=== PATIENT | female | born 1965 | race Caucasian/White ===

== ENCOUNTER 2016-12-22 20:44 | Emergency (ER) | payer MEDICAID ==
[~2016-12-22] VITALS: Ht 154.9 cm; Wt 80.6 kg
[2016-12-22 20:44] VITALS: BP 149/94
[2016-12-22] MEDS ORDERED: OXYcodone/APAP 5/325MG TABLET ONE (22:53)
[2016-12-22] MEDS ORDERED: OXYcodone/APAP 5/325MG TABLET PO ONE (23:00)
== END 2016-12-22 23:45 | disposition home or self-care (01) ==
LOC: ED 23:00
DX: M54.5 Low back pain (principal); G89.29 Other chronic pain; M25.512 Pain in left shoulder; J45.909 Unspecified asthma, uncomplicated; F17.210 Nicotine dependence, cigarettes, uncomplicated
CPT/HCPCS: 72110; 99284

== ENCOUNTER 2017-02-04 12:37 | Emergency (ER) | payer MEDICAID ==
[~2017-02-04] VITALS: Ht 154.9 cm; Wt 73.0 kg
[2017-02-04 12:39] VITALS: BP 104/74
[2017-02-04] MEDS ORDERED: ASPIRIN 81 MG TABLET CHEW PO ONE (13:30)
[2017-02-04] MEDS ORDERED: ASPIRIN 81 MG TABLET CHEW ONE (13:38)
[2017-02-04 14:01] LABS: BLOOD UREA NITROGEN 8 mg/dL (7-18)
[2017-02-04 14:06] LABS: ASPARTATE AMINO TRANSFERASE 14 U/L (15-37)
[2017-02-04 14:07] LABS: IS PT STATUS REG ER OR PRE ER? YES
== END 2017-02-04 14:51 | disposition home or self-care (01) ==
LOC: ED 13:44
DX: R00.2 Palpitations (principal); R07.89 Other chest pain; J45.909 Unspecified asthma, uncomplicated
CPT/HCPCS: 36415; 71010; 80053; 84484; 85025; 93005

== ENCOUNTER 2017-03-06 12:01 | Emergency (ER) | payer MEDICAID ==
[~2017-03-06] VITALS: Ht 154.9 cm; Wt 75.0 kg
[2017-03-06] MEDS ORDERED: OXYcodone/APAP 5/325MG TABLET ONE (12:53)
[2017-03-06] MEDS ORDERED: OXYcodone/APAP 5/325MG TABLET PO ONE (13:00)
[2017-03-06 15:52] VITALS: BP 119/80
== END 2017-03-06 15:54 | disposition home or self-care (01) ==
LOC: ED 14:13
DX: S82.61XA Displaced fracture of lateral malleolus of right fibula, initial encounter for closed fracture (principal); S80.211A Abrasion, right knee, initial encounter; J45.909 Unspecified asthma, uncomplicated; F17.200 Nicotine dependence, unspecified, uncomplicated; Z88.0 Allergy status to penicillin; Z88.5 Allergy status to narcotic agent; Z88.6 Allergy status to analgesic agent; W10.8XXA Fall (on) (from) other stairs and steps, initial encounter; Y93.01 Activity, walking, marching and hiking; Y92.098 Other place in other non-institutional residence as the place of occurrence of the external cause; Y99.8 Other external cause status
CPT/HCPCS: 29515

== ENCOUNTER 2018-03-21 17:43 | Emergency (ER) | payer MEDICAID ==
[~2018-03-21] VITALS: Ht 154.9 cm; Wt 65.6 kg
[2018-03-21 17:47] VITALS: BP 122/70
[2018-03-21] MEDS ORDERED: METHOCARBAMOL 750 MG TABLET PO ONE (18:30)
[2018-03-21] MEDS ORDERED: KETOROLAC 30 MG/1 ML IM ONE (18:30)
[2018-03-21] MEDS ORDERED: METHOCARBAMOL 750 MG TABLET ONE (18:38)
[2018-03-21] MEDS ORDERED: KETOROLAC 30 MG/1 ML ONE ×3 (18:38→18:46)
[2018-03-21] MEDS ORDERED: DIAZEPAM 5 MG TABLET ONE (18:46)
[2018-03-21] MEDS ORDERED: DIAZEPAM 5 MG TABLET PO ONE (19:00)
== END 2018-03-21 19:13 | disposition home or self-care (01) ==
LOC: ED 19:10
DX: M54.40 Lumbago with sciatica, unspecified side (principal); M51.36 Other intervertebral disc degeneration, lumbar region; J45.909 Unspecified asthma, uncomplicated; G89.29 Other chronic pain; Z88.0 Allergy status to penicillin; Z88.6 Allergy status to analgesic agent
CPT/HCPCS: 96372; 99283; J1885; J7512

== ENCOUNTER 2019-04-15 13:21 | Emergency (ER) | payer MEDICAID ==
[~2019-04-15] VITALS: Ht 154.9 cm; Wt 72.0 kg
--- NOTE | 2019-04-15 13:42 | NUR ---
AT BEDSIDE TO ASSESS PT AT THIS TIME
--- NOTE | 2019-04-15 13:45 | NUR ---
THIS IS A 54 YO FEMALE THAT COMES IN TODAY FOR A COUGH WITH DIFFICULTY BREATHING. PT HAS HX OF ASTHMA. PT IS CONNECTED TO ALL MONITORS AT THIS TIME. VSS. PT IS SPEAKING IN FULL SENTENCES W/O S/S OF DISTRESS
[2019-04-15 13:51] VITALS: BP 114/71
--- NOTE | 2019-04-15 14:19 | NUR ---
PT TO XRAY AT THIS TIME FOR ADDITIONAL IMAGES.
--- NOTE | 2019-04-15 14:23 | NUR ---
PT BACK FROM XRAY AT THIS TIME.
--- NOTE | 2019-04-15 14:31 | NUR ---
ALL RESULTS BACK AT THIS TIME CHART UP FOR RECHECK AWAITING FURTHER ORDERS
--- NOTE | 2019-04-15 14:36 | NUR ---
MD TO BEDSIDE TO REASSESS PT AND DISCUSS POC WITH PT AT THIS TIME
== END 2019-04-15 14:53 | disposition home or self-care (01) ==
LOC: ED 14:30
DX: J45.31 Mild persistent asthma with (acute) exacerbation (principal); J01.00 Acute maxillary sinusitis, unspecified; R05 Cough; F17.200 Nicotine dependence, unspecified, uncomplicated
CPT/HCPCS: 71046; 99283

== ENCOUNTER 2019-05-27 15:45 | Outpatient (CLI) | payer SELFPAY | END 2019-05-27 23:59 | disposition home or self-care (01) | LOC: CFH 15:45 | PROVIDERS: ATTEND Orthopaedic Surgery | DX: M47.816 Spondylosis without myelopathy or radiculopathy, lumbar region (principal); M43.16 Spondylolisthesis, lumbar region | CPT/HCPCS: 72110 ==

== ENCOUNTER 2019-08-12 16:22 | Outpatient (CLI) | payer MEDICAID | END 2019-08-12 23:59 | disposition home or self-care (01) | LOC: CFH 16:22 | PROVIDERS: ATTEND Physician Assistant Surgical | DX: M48.062 Spinal stenosis, lumbar region with neurogenic claudication (principal) | CPT/HCPCS: 72100 ==

== ENCOUNTER → 2019-09-30 | Outpatient (CLI) | payer MEDICAID | END | disposition home or self-care (01) | LOC: CFH 15:05 | PROVIDERS: ATTEND Physician Assistant Surgical | DX: M48.062 Spinal stenosis, lumbar region with neurogenic claudication (principal); M43.26 Fusion of spine, lumbar region | CPT/HCPCS: 72110 ==

== ENCOUNTER → 2019-12-30 | Outpatient (CLI) | payer MEDICAID | END | disposition home or self-care (01) | LOC: RAD 16:18 | PROVIDERS: ATTEND Physician Assistant Surgical | DX: S33.130A Subluxation of L3/L4 lumbar vertebra, initial encounter (principal); M48.062 Spinal stenosis, lumbar region with neurogenic claudication; X58.XXXA Exposure to other specified factors, initial encounter; Y93.89 Activity, other specified; Y92.89 Other specified places as the place of occurrence of the external cause; Y99.8 Other external cause status | CPT/HCPCS: 72110 ==

== ENCOUNTER → 2020-07-27 | Outpatient (CLI) | payer MEDICAID ==
[~2020-07-27] MED LIST: ACET1TAB64 PO; ALBU8.5H8 INH; ATOR20TA37 PO; CYCL-259 PO; DIAZ10TA PO; GABA300C PO
== END | disposition home or self-care (01) ==
LOC: STAR 08:03
PROVIDERS: ATTEND Surgery Surgery of the Hand
DX: Z20.828 Contact with and (suspected) exposure to other viral communicable diseases (principal); G56.03 Carpal tunnel syndrome, bilateral upper limbs; M65.4 Radial styloid tenosynovitis [de Quervain]; M79.641 Pain in right hand
CPT/HCPCS: 87635

== ENCOUNTER 2020-08-02 05:38 | Day surgery (SDC) | payer MEDICAID ==
[~2020-08-02] VITALS: Ht 152.4 cm; Wt 72.0 kg
[2020-08-02 06:10] VITALS: BP 109/72
[2020-08-02] MEDS ORDERED: MIDAZOLAM 1 MG/ML, 2ML ONE (06:16)
[2020-08-02] MEDS ORDERED: FENTANYL PF 250 MCG/5ML ONE (06:17)
[2020-08-02] MEDS ORDERED: ONDANSETRON 2MG/ML, 2ML ONE (06:28)
[2020-08-02] MEDS ORDERED: PROPOFOL 10 MG/ML, 20ML ONE (06:28)
[2020-08-02] MEDS ORDERED: CEFAZOLIN 1,000 MG ONE (06:28)
[2020-08-02] MEDS ORDERED: LACTATED RINGERS 1,000 ML IV SCH (06:30)
[2020-08-02] MEDS ORDERED: CHLORHEXIDINE 15 ML UDC MM ONE (06:30)
[2020-08-02] MEDS ORDERED: BUPIVACAINE/PF 0.5% ONE (06:49)
[2020-08-02] MEDS ORDERED: LIDOCAINE/PF 1%, 30ML ONE (06:49)
[2020-08-02] MEDS ORDERED: morphine SULFATE 10 MG/ML, 1ML IVPush PRN (07:00)
[2020-08-02] MEDS ORDERED: HYDROmorphone 1 MG/ML, 1ML INJ IVPush PRN (07:00)
[2020-08-02] MEDS ORDERED: HALOPERIDOL 5 MG/ML IV PRN (07:00)
[2020-08-02] MEDS ORDERED: OXYcodone 5 MG/5 ML ORAL.SOL UDC PO PRN (07:00)
[2020-08-02] MEDS ORDERED: PROMETHAZINE 25 MG/ML, 1ML IVPush PRN (07:00)
[2020-08-02] MEDS ORDERED: FENTANYL PF 100 MCG/2ML IV PRN (07:00)
[2020-08-02] MEDS ORDERED: ACETAMINOPHEN 325 MG TABLET PO PRN (07:00)
[2020-08-02] MEDS ORDERED: hydrALAzine 20 MG/ML, 1ML IV PRN (07:00)
[2020-08-02] MEDS ORDERED: LABETALOL 5MG/ML, 20ML IV PRN (07:00)
[2020-08-02] MEDS ORDERED: MEPERIDINE/PF 25MG/0.5ML IVPush PRN (07:00)
[2020-08-02] MEDS ORDERED: DEXAMETHASONE 4 MG/ML, 1ML ONE (07:26)
[2020-08-02] MEDS ORDERED: FENTANYL PF 100 MCG/2ML ONE (08:59)
[2020-08-02] MEDS ORDERED: ACETAMINOPHEN 650 MG/20.3 ML UDC ONE (08:59)
[2020-08-02] MEDS ORDERED: OXYcodone 5 MG/5 ML ORAL.SOL UDC ONE (08:59)
== END 2020-08-02 09:50 | disposition home or self-care (01) ==
LOC: OUT 05:38
PROVIDERS: ATTEND Surgery Surgery of the Hand
DX: G56.03 Carpal tunnel syndrome, bilateral upper limbs (principal); M65.4 Radial styloid tenosynovitis [de Quervain]; J45.909 Unspecified asthma, uncomplicated; E78.5 Hyperlipidemia, unspecified; F41.9 Anxiety disorder, unspecified; F17.200 Nicotine dependence, unspecified, uncomplicated; Z79.899 Other long term (current) drug therapy; Z88.0 Allergy status to penicillin; Z88.5 Allergy status to narcotic agent; Z88.8 Allergy status to other drugs, medicaments and biological substances; Z82.61 Family history of arthritis
CPT/HCPCS: 25000; 64721; J0690; J2250; J2405; J2704; J3010; J7120; J1100